=== PATIENT | male | born 1980 | race Caucasian/White ===

== ENCOUNTER 2023-04-08 11:55 | Emergency (ER) | payer OTHER ==
[2023-04-08 12:01] VITALS: TEMP 98.2; BMI 24.2
[2023-04-08 13:28] LABS: PH,URINE 6.5 (5.0-8.0); URINE APPEARANCE CLEAR; URINE BILIRUBIN NEGATIVE (NEGATIVE); URINE COLOR YELLOW; URINE GLUCOSE (UA) NEGATIVE (NEGATIVE); URINE KETONE NEGATIVE (NEGATIVE); URINE LEUK ESTERASE NEGATIVE (NEGATIVE); URINE NITRITE NEGATIVE (NEGATIVE); URINE PROTEIN NEGATIVE (NEGATIVE); URINE UROBILINOGEN 0.2 mg/dL (0.2-1.0)
[2023-04-08 13:29] LABS: EOS % 2.4 % (0-4.5); HEMOGLOBIN 15.6 GM/dL (11.7-16.9); LYMPH % 43.1 % (8-40); MCH 31.2 pg (25.7-33.7); MCHC 33.9 g/dl (32.0-35.9); MEAN CELL VOLUME 92.2 fl (80-96); MEAN PLT VOLUME 6.9 fl (7.5-11.1); NEUT % 47.5 % (42.8-82.8); PLATELET COUNT 344 10^3/uL (134-434); RBC 4.99 M/mm3 (4.00-5.60); RDW 12.8 % (11.9-15.9); WHITE BLOOD COUNT 3.5 K/mm3 (4.0-10.0)
[2023-04-08 14:01] LABS: POTASSIUM 4.8 mmol/L (3.5-5.1)
[2023-04-08 14:05] LABS: CALCIUM 9.6 mg/dL (8.5-10.1)
[2023-04-08 14:06] LABS: ALBUMIN 4.2 g/dl (3.4-5.0); BLOOD UREA NITROGEN 15.5 mg/dL (7-18)
[2023-04-08 14:09] LABS: CREATININE 1.2 mg/dL (0.55-1.3)
[2023-04-08 14:10] LABS: BILIRUBIN,TOTAL 0.6 mg/dL (0.2-1)
[2023-04-08 14:12] LABS: TOT PROT 7.8 g/dl (6.4-8.2)
[2023-04-08 16:02] VITALS: BP 146/85; PULSE 71; RESP 20
== END 2023-04-08 16:16 | disposition home or self-care (01) ==
LOC: JER 11:55
DX: R55 Syncope and collapse (principal); R00.2 Palpitations; R42 Dizziness and giddiness; R10.13 Epigastric pain; R10.32 Left lower quadrant pain; K42.9 Umbilical hernia without obstruction or gangrene; K40.90 Unilateral inguinal hernia, without obstruction or gangrene, not specified as recurrent
CPT/HCPCS: 36415; 71046-TC-FY; 74177-TC; 80053; 81003; 83690; 84484; 85025; 87086; 93005; 93010; 99285-25